=== PATIENT | female | born 1950 | race Caucasian/White ===

== ENCOUNTER → 2016-11-25 | Outpatient (CLI) | payer BC ==
[~2016-11-25] MED LIST: ALBUAER19 INH; ASPEC325 PO; ASTN; CITA20TA9 PO; FLEC50TA20 PO; FLUT0.0529 NAE; HMLIS SC; HYDR-5688 PO; INSUINJ4 SQ; LANS30CA12 PO; LOSA50TA6 PO; METO50TA7 PO; MOME100A INH; OXYSR10 PO; SNK PO; TRAM-10 PO; ZCR40 PO; [UNRECOGNIZED DRUG - OTHER] PO
== END | disposition home or self-care (01) ==
LOC: C.LABSPEC 17:43
PROVIDERS: ATTEND Obstetrics & Gynecology
DX: N76.2 Acute vulvitis (principal)

== ENCOUNTER → 2016-11-25 | Outpatient (CLI) | payer BC | END | disposition home or self-care (01) | LOC: C.PAPS 10:23 | PROVIDERS: ATTEND Obstetrics & Gynecology | DX: Z01.419 Encounter for gynecological examination (general) (routine) without abnormal findings (principal) ==

== ENCOUNTER → 2017-05-10 | Outpatient (CLI) | payer BC ==
--- NOTE | 2017-05-10 11:32 | DIAGNOSTIC IMAGING REPORT ---
THYROID ULTRASOUND HISTORY: NECK FULLNESS COMPARISON: None. FINDINGS: Right lobe: 3.9 x 2.2 x 1.4 cm. No nodules. Left lobe: 4.1 x 1.7 x 1.6 cm. No nodules. Isthmus: 4 mm in thickness. No nodules. IMPRESSION: Normal thyroid ultrasound. Electronically signed by: Tom Reynolds M.D. 05/10/2017 11:31 AM Dictated Date/Time: 05/10/2017 11:30 AM
== END | disposition home or self-care (01) ==
LOC: C.ULTR 10:38
PROVIDERS: ATTEND Internal Medicine Endocrinology, Diabetes & Metabolism
DX: R22.1 Localized swelling, mass and lump, neck (principal)

== ENCOUNTER 2017-05-26 01:37 | Emergency (ER) | payer BC ==
[~2017-05-26] VITALS: Ht 167.6 cm; Wt 114.7 kg
[~2017-05-26 01:37] MED LIST changes: -METO50TA7 PO; +METO50TA8 PO
[2017-05-26 01:43] VITALS: TEMP 36.2; Ht 167.6 cm; Wt 114.7 kg
--- NOTE | 2017-05-26 02:02 | EMERGENCY ROOM VISIT NOTE ---
History Report prepared by Melissa: Tera Dave Under the Supervision of: Dr. Carlton Stone M.D. First contact with patient: 01:51 Chief Complaint: HYPOGLYCEMIA Stated Complaint: HYPOGLYCEMIA Nursing Triage Summary: pt reports that she took her long acting insulin at 2330 adn then at 0015 she started to feel like she was panicking and sweaty. pt took glucose and toast with peanut butter. pt reports that her doctor has been altering her meds. pt was started on metformin 3 weeks ago. bsg at home was 56. per ems bsg was 107. History of Present Illness The patient is a 66 year old female who presents to the Emergency Room via EMS with complaints of an episode of hypoglycemia that occurred around an hour and a half ago. She says that she started to feel shaky, so she checked her sugars and they were down in the 60's. The patient states that she then took glucose and ate toast with peanut butter, and started to feel better. EMS noted that the patient's sugars were back to normal upon their arrival. The patient notes that she has had her medications adjusted recently, and is on Insulin, but had Metformin added 3 weeks ago. She adds that she has also been doing a lot more exertion recently, and did not eat as much as usual for dinner. The patient states that her heart was pounding during the episode, but denies any crushing chest pain. She also denies any back pain, flu-like illnesses, urinary symptoms , diarrhea, or leg swelling. The patient notes that her A1C's have recently been high over the past year. Source of History: patient Onset: An hour and a half ago Position: other (global - hypoglycemia) Symptom Intensity: in 60s Quality: other (feels better now) Timing: other (episode) Associated Symptoms: No chest pain (but heart was pounding), No back pain, No diarrhea, No urinary symptoms Note: Associated symptoms: Was shaky during episode. Denies flu-like illnesses or leg swelling. Review of Systems See HPI for pertinent positives & negatives. A total of 10 systems reviewed and were otherwise negative. Past Medical & Surgical Medical Problems: (1) Arthritis of left knee (2) Diabetes Family History No pertinent family history Social History Smoking Status: Never Smoker Marital Status: Housing Status: lives with family Occupation Status: employed Current/Historical Medications Scheduled Aspirin (Aspirin Ec), 325 MG PO BID Azelastine Hcl (Astelin Nasal [place]), 1 SPRAYS NA QPM Citalopram Hydrobromide (Celexa), 20 MG PO QAM Desloratadine (Clarinex), 5 MG PO QAM Flecainide (Tambocor), 50 MG PO BID Fluticasone Propionate (Nasal) (Flonase Allergy Relief), 2 SPRAYS NINO DAILY Insulin Glargine (Lantus), 58 UNITS SC QPM Insulin Human Lispro (Humalog Kwikpen), 1 DOSE SC TID Lansoprazole (Prevacid), 30 MG PO BID Losartan Potassium (Cozaar), 50 MG PO QAM Metformin Hcl Er (Glucophage Er), 500 MG PO BID Metoprolol Succ (Toprol Xl) (Toprol-Xl), 50 MG PO HS Simvastatin (Simvastatin), 40 MG PO QPM Scheduled PRN Albuterol Hfa (Ventolin Hfa), 2 PUFFS INH QID PRN for Shortness of Breath Mometasone Furoate-Formoterol (Dulera 100/5 Mcg), 2 PUFFS INH Q8H PRN for PRN Allergies Coded Allergies: Iodinated Diagnostic Agents (Verified Allergy, Unknown, HIVES, BREATHING ISSUES, 05/26/17) Physical Exam Vital Signs Date Time Temp Pulse Resp B/P (MAP) Pulse Ox O2 Delivery O2 Flow Rate FiO2 05/26/17 03:39 79 20 97 05/26/17 03:31 117/70 05/26/17 03:24 73 16 94 05/26/17 03:09 73 17 94 05/26/17 03:04 79 17 96 05/26/17 03:01 124/70 05/26/17 02:49 78 17 95 05/26/17 02:34 76 17 97 05/26/17 02:31 152/67 05/26/17 02:19 70 13 94 05/26/17 02:04 75 18 93 05/26/17 02:01 131/68 05/26/17 01:49 75 19 96 05/26/17 01:44 75 05/26/17 01:44 75 19 162/70 96 Room Air 05/26/17 01:43 36.2 74 20 162/70 97 Room Air Physical Exam GENERAL: Patient is well appearing and in no acute distress. HEENT: No acute trauma, normocephalic atraumatic, mucous membranes moist, no nasal congestion, no scleral icterus. NECK: No stridor, no adenopathy, no meningismus, trachea is midline. LUNGS: No dyspnea. Clear to auscultation and equal bilaterally. No wheeze, no rhonchi. HEART: Regular rate and rhythm. No murmurs, rubs, gallops appreciated. ABDOMEN: Soft, nontender, bowel sounds positive, no masses appreciated, no peritonitis. BACK: No midline tenderness, no CVA tenderness EXTREMITIES: Normal motion all extremities, no cyanosis, no edema. NEUROLOGIC: Alert and oriented, no acute motor or sensory deficits, no focal weakness, cranial nerves grossly intact. SKIN: No rash, no jaundice, no diaphoresis. Medical Decision & Procedures Laboratory Results Test 05/26/17 02:40 05/26/17 03:42 Bedside Hemoglobin 13.9 g/dl (12.0-16.0) Bedside Hematocrit 41 % (37-47) Bedside Sodium 135 mEq/L (135-144) Bedside Potassium 3.6 mEq/L (3.3-5.0) Bedside Chloride 98 mEq/L (101-112) Bedside Total CO2 27 mEq/l (24-31) Anion Gap 15.0 mmol/L (16-25) Bedside Blood Urea Nitrogen 19 mg/dl (7-18) Bedside Creatinine 0.7 mg/dl (0.6-1.3) Bedside Glucose (other) 165 mg/dl (70-99) Bedside Ionized Calcium (Katie) 1.16 mmol/l (1.12-1.32) Bedside Glucose 245 mg/dl (70-90) Laboratory results as reviewed by me. ED Course 0153: The patient was evaluated in room B2. A complete history and physical exam was performed. 0234: I reevaluated the patient and she is feeling well. Her is at bedside. 0330: Reevaluated the patient and she is feeling well. Discussed results and discharge instructions: she verbalized understanding and agreement. The patient is ready for discharge. Medical Decision 66 yr old female arrives following episode of resolved hypoglycemia. Consistent with fact she recently started metformin, was increased exertion throughout day and then had minimal dinner leading to episode. Cr OK as are other electrolytes. BSG not going low again. Patient stable, feels well and in no distress. No symptoms/findings of infectious etiology. Had no chest pain nor reason to suspect this was MS related. She will contact PCP for further evaluation. Discussed scaling back metformin while waiting on PCP input. Going home with . Medication Reconcilliation Current Medication List: was personally reviewed by me Impression Primary Impression: Hypoglycemia Scribe Attestation The scribe's documentation has been prepared under my direction and personally reviewed by me in its entirety. I confirm that the note above accurately reflects all work, treatment, procedures, and medical decision making performed by me. Departure Information Dispostion Home / Self-Care Referrals Glenna Harrison M.D. (PCP) Patient Instructions ED Diabetes Hypoglycemia Oral Agent, [facility] Additional Instructions Please discuss your low blood sugar episode with your primary provider.
[2017-05-26] MEDS ORDERED: METF500T5 PO (02:33)
[2017-05-26] MEDS ORDERED: ASPI325T39 PO (02:33)
[2017-05-26] MEDS ORDERED: INSDGI SC (02:33)
[2017-05-26] MEDS ORDERED: VNTHFA/IN INH (02:33)
[2017-05-26] MEDS ORDERED: CLR/5 PO (02:33)
[2017-05-26] MEDS ORDERED: FLUT0.15 NAE (02:33)
[2017-05-26 02:52] LABS: ISTAT CREATININE 0.7 mg/dl (0.6-1.3); ISTAT IONIZED CALCIUM 1.16 mmol/l (1.12-1.32); ISTAT POTASSIUM 3.6 mEq/L (3.3-5.0)
[2017-05-26 03:31] VITALS: BP 117/70
[2017-05-26 03:39] VITALS: PULSE 79; O2SAT 97
[2017-10-21] MEDS ORDERED: DULO60CA44 PO (08:41)
== END 2017-05-26 03:44 | disposition home or self-care (01) ==
LOC: EDBD 01:37 → C.EDB 01:38
DX: E11.649 Type 2 diabetes mellitus with hypoglycemia without coma (principal); M17.12 Unilateral primary osteoarthritis, left knee; Z79.4 Long term (current) use of insulin; Z79.82 Long term (current) use of aspirin; Z79.84 Long term (current) use of oral hypoglycemic drugs

== ENCOUNTER → 2017-06-01 | Outpatient (CLI) | payer BC ==
[~2017-06-01] MED LIST changes: -ALBUAER19 INH; -ASPEC325 PO; +ASPI325T39 PO; +CLR/5 PO; -FLUT0.0529 NAE; +FLUT0.15 NAE; -HYDR-5688 PO; +INSDGI SC; -INSUINJ4 SQ; +METF500T5 PO; +METO50TA7 PO; -METO50TA8 PO; -OXYSR10 PO; -SNK PO; -TRAM-10 PO; +VNTHFA/IN INH; -[UNRECOGNIZED DRUG - OTHER] PO
[2017-06-01 12:32] LABS: HEMOGLOBIN A1C 7.9 % (4.5-5.6)
[2017-06-01 13:11] LABS: CREATININE RANDOM URINE 70.3 mg/dl
[2017-06-01 16:39] LABS: ALBUMIN 3.6 gm/dl (3.4-5.0); ALT/SGPT 44 U/L (12-78); BLOOD UREA NITROGEN 11 mg/dl (7-18); CALCIUM 8.5 mg/dl (8.5-10.1); CARBON DIOXIDE 28 mmol/L (21-32); CHOLESTEROL 129 mg/dl (0-200); CREATININE 0.68 mg/dl (0.60-1.20); GLUCOSE 157 mg/dl (70-99); POTASSIUM 3.9 mmol/L (3.5-5.1); SODIUM 132 mmol/L (136-145)
[2017-06-01 16:48] LABS: ALKALINE PHOSPHATASE 95 U/L (45-117); AST/SGOT 24 U/L (15-37); LDL CHOLESTEROL CALCULATED 61 mg/dl; TOTAL PROTEIN 7.3 gm/dl (6.4-8.2)
== END | disposition home or self-care (01) ==
LOC: C.LAB1850 11:21
PROVIDERS: ATTEND Internal Medicine Endocrinology, Diabetes & Metabolism
DX: E11.9 Type 2 diabetes mellitus without complications (principal)

== ENCOUNTER → 2017-06-09 | Outpatient (CLI) | payer BC ==
--- NOTE | 2017-06-10 15:53 | MAMMOGRAPHY REPORT ---
BILATERAL DIGITAL SCREENING MAMMOGRAM TOMOSYNTHESIS WITH CAD: 06/09/2017 CLINICAL HISTORY: Routine screening. Patient has no complaints. TECHNIQUE: Breast tomosynthesis in addition to standard 2D mammography was performed. Current study was also evaluated with a Computer Aided Detection (CAD) system. COMPARISON: Comparison is made to exams dated: 06/08/2016 mammogram, 06/06/2015 mammogram, 04/09/2014 mammogram, 04/06/2013 mammogram, 04/05/2012 mammogram, and 04/03/2011 mammogram - [facility]. BREAST COMPOSITION: The tissue of both breasts is almost entirely fatty. FINDINGS: No suspicious mass, architectural distortion or cluster of microcalcifications is seen. IMPRESSION: ACR BI-RADS CATEGORY 1: NEGATIVE There is no mammographic evidence of malignancy. A 1 year screening mammogram is recommended. The pa tient will receive written notification of the results. Approximately 10% of breast cancers are not detected with mammography. A negative mammographic report should not delay biopsy if a clinically suggestive mass is present. Zenaida Lin M.D. ay/:06/09/2017 14:57:33 Ball Sorter: Caridad HILARIO(Cruz)(Lita), [facility] letter sent: Normal 1/2 BI-RADS Code: ACR BI-RADS Category 1: Negative
== END | disposition home or self-care (01) ==
LOC: C.MAMM 14:26
PROVIDERS: ATTEND Obstetrics & Gynecology
DX: Z12.31 Encounter for screening mammogram for malignant neoplasm of breast (principal)

== ENCOUNTER 2020-07-03 06:37 | Observation (INO) ==
--- NOTE | 2020-06-12 12:40 | Anesthesiology Consultation ---
Date of Service June 12, 2020 Assessment & Plan (1) Encounter for pre-operative examination: Chart Review Chart Review: Pending: Refer to Additional Notes / Consult section (pending possible surgeon ordered PCP and cardio clearance and preop Covid testing results ) and Patient NOT seen in Pre Admission Testing Awaiting possible surgeon ordered PCP and cardiac clearance - Check BSG AM DOS Pt initially scheduled for surgery 06/05/20- seen in PAT 05/20/20. Pt rescheduled due to Covid surge Per 05/20/20 PAT appt- patient goes by [facility]. 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 Patient was awake for the entire case and recalls sites sounds and smells of the OR. She reports the MEDICAL OFFICE RECEPTIONIST kept her talking and tried to distract her, also propofol given throughout the case but patient recalls being told they could not give her any more than they were already administering. BP noted to be on the lower end of normal throughout case, and pt notes this was prior to NICHOLAS diagnosis and treatment. Records do not indicate any complications/problems from anesthesia standpoint. Patient has since been treated for NICHOLAS with CPAP and reports 100% compliance. Interestingly, no issues with awareness with TKA few months prior to that one. Baseline BP appears higher throughout that case per review of records." Per nursing assessment 06/12/20, patient denies any recent travel. No known Covid positive contacts or Covid related symptoms. Scheduled for preop Covid testing 06/27/20 at [facility]= will await results. History Surgery Operation Date: 07/03/20 09:05 Proposed Procedures p Right Total Knee Revision with Depuy System - Ulises Jordan MD Height/Weight Height: 5 ft 5 in Weight: 99.79 kg Allergies Allergy/AdvReac Type Severity Reaction Status Date / Time Iodinated Contrast Media Allergy Intermediate HIVES, Verified 06/12/20 11:42 BREATHING ISSUES Medications Home Medications Medication Instructions Recorded Confirmed Last Taken albuterol sulfate 90 mcg/actuation 2 puffs INH Q6H PRN 02/23/19 06/12/20 Unknown aerosol inhaler cholecalciferol (vitamin D3) 125 5,000 units PO QPM 02/23/19 06/12/20 Unknown mcg (5,000 unit) capsule duloxetine 60 mg capsule,delayed 60 mg PO QAM 02/23/19 06/12/20 Unknown release losartan 50 mg tablet 50 mg PO QAM 02/23/19 06/12/20 Unknown simvastatin 40 mg tablet 40 mg PO QPM 02/23/19 06/12/20 Unknown Lactobacil.acidophilus-Bifido.animalis 1 cap PO QAM 03/27/19 06/12/20 Unknown 5 billion cell sprinkle capsule desloratadine 5 mg tablet 5 mg PO QAM tab 03/27/19 06/12/20 Unknown magnesium 250 mg tablet 200 mg PO QPM tab 03/27/19 06/12/20 Unknown FreeStyle Precision Caesar Strips #6 box NS 05/11/19 03/26/20 Unknown cyanocobalamin (vitamin B-12) 100 100 mcg PO QPM 10/17/19 06/12/20 Unknown mcg tablet flecainide 50 mg tablet 100 mg PO Q12H tab 10/17/19 06/12/20 Unknown pantoprazole 40 mg tablet,delayed 40 mg PO BID 10/17/19 06/12/20 Unknown release apixaban 5 mg tablet 5 mg PO BID 10/19/19 06/12/20 Unknown insulin NPH isoph U-100 human 100 See Rx Instructions SQ QPM #90 ml 10/19/19 06/12/20 Unknown unit/mL (3 mL) subcutaneous pen FreeStyle Karmen 14 Day Sensor #7 ea NS 01/31/20 03/26/20 Unknown Trulicity 1.5 mg/0.5 mL 1.5 mg SQ WEEKLY 90 Days #6 ml NS 03/26/20 06/12/20 Unknown subcutaneous pen injector metoprolol succinate 50 mg 100 mg PO QPM tab 03/26/20 06/12/20 Unknown tablet,extended release 24 hr CoQ-10 1 dose PO QPM 05/20/20 06/12/20 Unknown ascorbic acid (vitamin C) [Vitamin 1 g PO QPM 05/20/20 06/12/20 Unknown C] calcium carbonate [Calcium 600] 600 mg PO QPM 05/20/20 06/12/20 Unknown metformin 1,000 mg PO BID 05/20/20 06/12/20 Unknown potassium 99 mg PO QPM 05/20/20 06/12/20 Unknown vitamin B complex 1 cap PO QPM 05/20/20 06/12/20 Unknown Past Medical History Medical History (Updated 06/12/20 @ 12:49 by Criss Patterson PA-C) Anxiety Atrial fibrillation dx 07/2019 - on eliquis - follows with Dr. Croft Cardiac murmur I-II/ systolic murmur noted by Nick France PA-C at 05/20/20 PAT exam Mild MR - otherwise no significant valvular issues per 2019 ECHO DM type 2 (diabetes mellitus, type 2) IDDM GERD (gastroesophageal reflux disease) Grief Patient lost her in November of 2019. HTN (hypertension) Hyperlipidemia Osteoarthritis Sleep apnea CPAP. Pt reports 100% compliance. Past Family History Family History Mother Diabetes Brother Diabetes Brother Diabetes Uncle Diabetes Other Cancer Coronary heart disease Hypertension No family history of adverse response to anesthesia Past Surgical History Surgical History H/O hysterectomy with oophorectomy H/O varicose vein ligation History of carpal tunnel release History of colonoscopy History of D&C History of esophagogastroduodenoscopy (EGD) History of hernia repair History of knee replacement procedure of left knee History of knee replacement procedure of right knee S/P appendectomy S/P cholecystectomy S/P tonsillectomy and adenoidectomy Social History Smoking Status: Never smoker Hx Alcohol Use: No Hx Substance Use: No substance use type: does not use Testing Laboratory Results Laboratory Tests 05/20/20 05/20/20 05/20/20 16:27 16:27 16:27 WBC 9.00 Hgb 12.7 Hct 38.1 Plt Count 285 PT 10.6 INR 1.0 APTT 31.8 H Sodium 133 L Potassium 3.9 Chloride 99 Carbon Dioxide 29 BUN 11 Creatinine 0.62 Glucose 164 H Hemoglobin A1c 05/20/20 16:27 WBC Hgb Hct Plt Count PT INR APTT Sodium Potassium Chloride Carbon Dioxide BUN Creatinine Glucose Hemoglobin A1c 7.5 H 05/20/20= URINE CULTURE: More than three types of organisms present, all low counts mixed probably skin sienna. T&S: A positive, antibody negative Electrocardiogram Date: 05/20/20 Sinus rhythm at 68bpm with 1st degree AV block. Inferior infarct, age undetermined. Compared to EKG from 07/06/19, questionable change in QRS duration per cardio. (Possible inferior infarct noted on EKG since at least 2013) Chest X-Ray Date: 07/06/19 Findings: + NAD Echocardiogram Date: 01/25/19 EF: 70% Normal LV size and systolic function with no regional wall motion abnormalities. Mild concentric LVH. Diastolic function is indeterminate. Mild to moderate left atrial dilation. Normal RV size and function. Normal right atrium. Mild MR. Normal pulmonary artery pressures. Stress Test Date: 10/14/15 Type: exercise (Stress ECHO ) Resting EF: 60% Hypertensive response to exercise. Negative stress echocardiogram and EKG for ischemia 95% MPHR. Average exercise tolerance for age and gender, 106% of predicted, achieving 7 METS. Resting echocardiogram notes normal LV cavity size and systolic function with no regional wall motion abnormalities present.
--- NOTE | 2020-07-02 08:05 | History & Physical Report ---
Date of Service July 02, 2020 Assessment & Plan (1) Loosening of prosthesis of right total knee replacement: Postoperative prescriptions for Percocet will be provided at discharge from the hospital. She will likely be returning to her Eliquis. She has already been cleared by her PCP, Dr. Harrison, as well as her vocational instructor, Dr. Croft. She has seen PAT for lab work, EKG, and chest x-ray. The patient is aware of the COVID-19 risks associated with surgery. She is currently asymptoma tic of any COVID-19 symptoms. She will obtain a nasal swab for COVID-19 prior to surgery. She will stop her Eliquis preoperatively. She already has a walker. PDMP was checked and there are no concerns. Followup appointment for staple removal has been made for July 18. History of Present Illness Chief Complaint: Loose Right knee total knee arthroplasty Primary Care Provider: Glenna Harrison MD This 69-year-old white female presents today for her preoperative history and physical. She is scheduled to undergo a right knee total knee arthroplasty revision on 07/03/2020. The patient previously was scheduled for this procedure 06/05/2020. Surgery was postponed by the hospital due to rise in COVID cases. She is now ready to proceed. The patient previously had bilateral total knee arthroplasties done in 2015 by another practice in [facility]. She has had right knee pain since the procedure. She states it has not improved. Pain is primarily anterior. She has difficulty with ambulation as well as going up or down the steps. She feels a sense of giving way in the right knee. No fevers, chills, sweats, redness, or warmth. Previous Synovasure aspiration was negative for infection. She did have a bone scan, which suggested a loose tibial component. Her knee pain interferes with her ADLs and is worse with weightbearing. She denies any numbness or tingling. She elects to proceed with surgical intervention in the hopes of improving her function and pain. Allergies Allergy/AdvReac Type Severity Reaction Status Date / Time Iodinated Contrast Media Allergy Intermediate HIVES, Verified 06/12/20 11:42 BREATHING ISSUES Home Medications Medication Instructions Recorded Confirmed Type albuterol sulfate 90 mcg/actuation 2 puffs INH Q6H PRN 02/23/19 06/12/20 History aerosol inhaler cholecalciferol (vitamin D3) 125 5,000 units PO QPM 02/23/19 06/12/20 History mcg (5,000 unit) capsule duloxetine 60 mg capsule,delayed 60 mg PO QAM 02/23/19 06/12/20 History release losartan 50 mg tablet 50 mg PO QAM 02/23/19 06/12/20 History simvastatin 40 mg tablet 40 mg PO QPM 02/23/19 06/12/20 History Lactobacil.acidophilus-Bifido.animalis 1 cap PO QAM 03/27/19 06/12/20 History 5 billion cell sprinkle capsule desloratadine 5 mg tablet 5 mg PO QAM tab 03/27/19 06/12/20 History magnesium 250 mg tablet 200 mg PO QPM tab 03/27/19 06/12/20 History FreeStyle Precision Caesar Strips #6 box NS 05/11/19 03/26/20 Rx cyanocobalamin (vitamin B-12) 100 100 mcg PO QPM 10/17/19 06/12/20 History mcg tablet flecainide 50 mg tablet 100 mg PO Q12H tab 10/17/19 06/12/20 History pantoprazole 40 mg tablet,delayed 40 mg PO BID 10/17/19 06/12/20 History release apixaban 5 mg tablet 5 mg PO BID 10/19/19 06/12/20 History insulin NPH isoph U-100 human 100 See Rx Instructions SQ QPM #90 ml 10/19/19 06/12/20 Rx unit/mL (3 mL) subcutaneous pen FreeStyle Karmen 14 Day Sensor #7 ea NS 01/31/20 03/26/20 Rx Trulicity 1.5 mg/0.5 mL 1.5 mg SQ WEEKLY 90 Days #6 ml NS 03/26/20 06/12/20 Rx subcutaneous pen injector metoprolol succinate 50 mg 100 mg PO QPM tab 03/26/20 06/12/20 History tablet,extended release 24 hr CoQ-10 1 dose PO QPM 05/20/20 06/12/20 History ascorbic acid (vitamin C) [Vitamin 1 g PO QPM 05/20/20 06/12/20 History C] calcium carbonate [Calcium 600] 600 mg PO QPM 05/20/20 06/12/20 History metformin 1,000 mg PO BID 05/20/20 06/12/20 History potassium 99 mg PO QPM 05/20/20 06/12/20 History vitamin B complex 1 cap PO QPM 05/20/20 06/12/20 History Past Med/Surg History Medical History Anxiety Atrial fibrillation dx 07/2019 - on eliquis - follows with Dr. Croft Cardiac murmur I-II/ systolic murmur noted by Nick France PA-C at 05/20/20 PAT exam Mild MR - otherwise no significant valvular issues per 2019 ECHO DM type 2 (diabetes mellitus, type 2) IDDM GERD (gastroesophageal reflux disease) Grief Patient lost her in November of 2019. HTN (hypertension) Hyperlipidemia Osteoarthritis Sleep apnea CPAP. Pt reports 100% compliance. Surgical History H/O hysterectomy with oophorectomy H/O varicose vein ligation History of carpal tunnel release History of colonoscopy History of D&C History of esophagogastroduodenoscopy (EGD) History of hernia repair History of knee replacement procedure of left knee History of knee replacement procedure of right knee S/P appendectomy S/P cholecystectomy S/P tonsillectomy and adenoidectomy Family History Mother Diabetes Brother Diabetes Brother Diabetes Uncle Diabetes Other Cancer Coronary heart disease Hypertension No family history of adverse response to anesthesia Social History (Updated 07/02/20 @ 08:02 by Dakotah Elise PA-C) Smoking Status: Never smoker Second Hand Exposure: No; Hx Alcohol Use: No Hx Substance Use: No Preferred Language: Lao Communication Ability: Effective Auger Supervisor Required: No Beliefs That Will Affect Care: None marital status: / Current Living Situation: Alone current occupational status: retired Feels Safe at Home: Yes Assistive Devices: Contacts and Glasses Review of Systems Review of Systems: All systems reviewed & are unremarkable except as noted in HPI & below A total of 10 systems were reviewed. Physical Exam Physical Exam: Vitals: Height 165.5 cm, weight 101 kilograms, BMI 36.9, temperature 36.1, BP 170/90, pulse 73, O2 sat 95% on room air, respirations 14. General: Well-developed, well-nourished middle-aged white female in no acute distress. Sitting in a chair. Alert and oriented. Moderately obese. Skin: Warm and dry with good turgor. No rashes or lesions. No ecchymosis or erythema. No warmth at the knee. Post-surgical scar is present. HEENT: Normocephalic, atraumatic. Eyes: PERRLA, EOMI. Nares and oropharynx exams deferred due to COVID precautions. She does have a history of dental caps. Lungs: Clear to auscultation bilaterally; no crackles, rhonchi or wheezing; good air movement. Heart: RRR, 2/6 systolic ejection murmur noted. No gallops or rubs. Abdomen: Obese. Bowel sounds present x4; soft, nontender. No organomegaly. No masses. Musculoskeletal: Right knee has no significant intraarticular effusion. Varus alignment. She lacks a few degrees of terminal extension. Flexion to around 100 degrees. Strength is 5/5 with fair quad tone. She has pain over the quadricep, quad tendon, and patellar tendon. No defects. She appears to have some laxity with varus and valgus stress compared to the other side. Ambulates with an antalgic gait. Neurologic: Gross sensation is intact across both lower extremities by soft touch. Peripheral pulses are 2+. Results & Data Results & Data ([facility]) Diagnostic Findings Radiographic imaging previously obtained shows varus alignment of the right knee with loosening of the tibial component. Bone scan previously obtained 04/08/2020 shows loosening of the tibial component. Moderate to marked radiotracer uptake adjacent to the tibial component with mild uptake at the femoral component.
[~2020-07-03 06:37] MED LIST changes: -ASPI325T39 PO; -ASTN; +BUPIVACAINE 0.25% 30 ML VIAL ONE; +BUPIVACAINE 0.5 % 5 MG/1 ML PF 10ML VIAL ONE; -CITA20TA9 PO; -CLR/5 PO; -FLEC50TA20 PO; -FLUT0.15 NAE; -HMLIS SC; -INSDGI SC; -LANS30CA12 PO; -LOSA50TA6 PO; +LR 500ML BOLUS, THEN 15ML/HR IV SCH; +LR 60ML/HR IV SCH; -METF500T5 PO; -METO50TA7 PO; -MOME100A INH; +ROPIVACAINE 0.5% HCL/PF 150 MG, BUPIVACAINE 0.75% MPF 20 ML, EPINEPHrine 0.15 MG, Ketor... INFIL SCH; +TRANEXAMIC ACID 1,000 MG **IV Intra-op IV SCH; +TRANEXAMIC ACID 1,000 MG x 1 **For Topical Use TOP SCH; +VANCOMYCIN HCL 1,500 MG in SODIUM CHLORIDE 0.9% 500 ML IV SCH; -VNTHFA/IN INH; -ZCR40 PO; +ceFAZolin 2000MG 2,000 MG/15 ML SYR IV SCH
--- NOTE | 2020-07-03 06:53 | History & Physical Bridge Note ---
Date of Service July 03, 2020 History & Physical Bridge Note I have examined the patient, reviewed the History & Physical and in the interval since the performance of the History & Physical I have noted the following changes of clinical significance:consent obtained /site verified/covid screen negative. no changes noted
[2020-07-03] MEDS ORDERED: MIDAZOLAM HCL 1 MG/ML 2ML VIAL ONE ×3 (07:16→10:59)
[2020-07-03] MEDS ORDERED: fentaNYL citrate 100 MCG/2 ML VIAL ONE (07:17)
[2020-07-03] MEDS ORDERED: KETAMINE 50 MG/5 ML SYRINGE ONE (07:26)
[2020-07-03] MEDS ORDERED: ORTHO JOINT ANESTHETIC ONE (08:56)
[2020-07-03] MEDS ORDERED: INSULIN ASPART PER UNIT SC STA (09:05)
[2020-07-03] MEDS ORDERED: ATROPINE SULFATE 0.1 MG/ML 10ML SYR IV PRN (09:07)
[2020-07-03] MEDS ORDERED: ePHEDrine sulfate 50 MG/ML AMP IV PRN (09:07)
[2020-07-03] MEDS ORDERED: fentaNYL citrate 100 MCG/2 ML VIAL IV PRN (09:07)
[2020-07-03] MEDS ORDERED: ONDANSETRON INJ 2 MG/ML 2 ML VIAL IV PRN ×2 (09:07→13:47)
[2020-07-03] MEDS ORDERED: NovoLIN-R INSULIN PER UNIT CHARGE ONE (09:07)
[2020-07-03] MEDS ORDERED: PROPOFOL IV EMULSION 10 MG/ML 20 ML VIAL IV ONE ×3 (09:46→10:18)
[2020-07-03] MEDS ORDERED: GLYCOPYRROLATE 0.2 MG/ML VIAL ONE (09:46)
[2020-07-03] MEDS ORDERED: ONDANSETRON INJ 2 MG/ML 2 ML VIAL ONE (09:46)
[2020-07-03] MEDS ORDERED: LIDOCAINE HCL 2% 2 ML VIAL/AMP(20MG/ML) INFIL ONE (09:46)
--- NOTE | 2020-07-03 12:03 | Post Operative Brief Note ---
Immediate Post Op Note v1 Date of Surgery July 03, 2020 Pre & Post Diagnosis Operation Date: 07/03/20 08:50 Pre-Op Diagnosis: Loose Right Total Knee Arthroplasty Post-Op Diagnosis: Loose Right Total Knee Arthroplasty I identified the patient and participated in the time-out.: Yes Procedure Operation Date: 07/03/20 08:50 Actual Procedures p Right Total Knee Revision with DePuy System(Right) - Ulises Jordan MD Surgeon Ulises Jordan MD Prep Manager david/rajinder Estimated Blood Loss 75 Findings Consistent with Post-Op Diagnosis
--- NOTE | 2020-07-03 12:14 | Operative Report ---
Post Operative Report Pre & Post Diagnosis Operation Date: 07/03/20 08:50 Pre-Op Diagnosis: Loose Right Total Knee Arthroplasty Post-Op Diagnosis: Loose Right Total Knee Arthroplasty I identified the patient and participated in the time-out.: Yes Procedure Operation Date: 07/03/20 08:50 Actual Procedures p Right Total Knee Revision with DePuy System(Right) - Ulises Jordan MD Surgeon ОЛЕГ Jordan MD Shift Foreman david/rajinder CADENA Estimated Blood Loss 75 Findings Consistent with Post-Op Diagnosis Specimens see operative report Drains none Complications none Disposition Accompanied Patient To Recovery: Yes Disposition: Recovery Room Indications This 69-year-old white female presented to the office with complaints of persisting right knee pain after previous total knee arthroplasty 5 years ago. She had tried conservative care measures without improvement. She elected to proceed with surgical intervention after being educated about potential risks and outcomes. Preoperative imaging was obtained. Description of Procedure Patient was administered a spinal anesthetic and then taken to the operating room where she was given sedation. She was prepped and draped in the usual sterile fashion. Please see Dr. Jordan's operative report for specifics of the procedure. I was present for the entire case from initial patient positioning through final wound closure. Assistance was provided in tissue retraction, hemostasis, hardware removal, trial implant placement, final implant placement, and final wound closure. Patient was taken to the recovery room in satisfactory condition. I attest to the content of the Intraoperative Record and any orders documented therein. Any exceptions are noted below.
[2020-07-03] MEDS ORDERED: PHARMACY GLYCEMIC MGMT CONSULT PRN (12:28)
--- NOTE | 2020-07-03 12:38 | XRay Report ---
XR knee RT 1 or 2V routine CLINICAL HISTORY: Knee arthroplasty revision COMPARISON: 04/01/2020 DISCUSSION: There are postsurgical changes of a longstem total right knee arthroplasty revision. Ther e is evidence of patellar resurfacing. There are no acute fractures. There is no dislocation. There a re overlying skin primo. There is gas within the soft tissues consistent with recent surgery IMPRESSION: Postsurgical changes of a total right knee arthroplasty revision. ACT 112: Negative or not required by law. Electronically signed by: Kd Burrell M.D. 07/03/2020 12:37 PM
--- NOTE | 2020-07-03 12:38 | Operative Report (OR) ---
DATE OF OPERATION: 07/03/2020 SURGEON: Ulises Jordan MD. HELP DESK ANALYST: Yesenia. SECOND HELP DESK ANALYST: Dakotah Elise PA-C. PREOPERATIVE DIAGNOSIS: Loose aseptic right total knee replacement. POSTOPERATIVE DIAGNOSIS: Loose aseptic right total knee replacement. OPERATION PERFORMED: Revision right total knee replacement with Sigma TC3 rotating platform. This was cemented. SUMMARY OF IMPLANTS: Size 2.5 right TC3 +2 bolt, 5-degree adaptor, 2.5, 4 mm distal augments x2, 17 x16 stem on the femur, on the tibia was 2.5 mobile bearing tray revision 75 x 14 stem, 29 sleeve, insert was 2.5 x 15 TC3 rotating platform insert. ESTIMATED BLOOD LOSS: 75 mL. CRYSTALLOID: Per anesthesia. PATHOLOGY: Pending on soft tissue resection. PERIOPERATIVE SITUATION: Medically cleared female who has been worked up with a bone scan, alpha defensin and cultures, all of which were negative, which revealed loosening of her tibia. She states the knee never felt right from the beginning. At this point, wants to have it revised. No guarantees given including the potential for infection, patellar tendon or extensor mechanism disruption, etc. She also knows DVT, PE and so forth. DESCRIPTION OF PROCEDURE: The patient was appropriately identified, site verified, consent verified. Antibiotics confirmed as being given. The right lower extremity was prepped and draped in usual routine fashion. Tourniquet inflated to 300 mmHg for a total of 113 minutes. The old incision was utilized and extended slightly proximally about a centimeter. Arthrotomy was performed. The patella was encased in scar, could not be everted. It required tedious dissection to get that out. Once that was all done, we were able to jose the patella. Flexed the knee, synovectomy completed. The femur was then removed with a power saw and osteotomes with no difficulty. There was no major bone loss on the femur. Tibia was loose. It was knocked off and then the cement required a fair amount of removal as there was a large wad distally. This all took careful tedious dissection to get that out. This was then all irrigated. Trial implants were then placed after appropriate reaming on the tibia and on the femur, and they are noted as above. Once the permanents were then prepared, the area was irrigated one final time with Betadine and Pulsavac and then the permanent cemented into position. With the metaphyseal sleeve, there was minimal cement on the tibia. With no sleeve on the femur, there was more cement. After 12 minutes, the tourniquet was deflated. Minor bleeding points were controlled with electrocautery. After 14 minutes, knee flexed. Minor cement removal occurred. The trial spacer was removed. The wound was irrigated with Betadine and Pulsavac and then the permanent liner seated, knee reduced and closed at 30-40 degrees of flexion with #2 Vicryl, 2-0 Vicryl and stainless steel clips. Appropriate dressing was applied including a Grant Florez cotton dressing. Need to protect her wound. Antibiotics will continue for hospital stay overnight. DVT prophylaxis per her protocol. She is on chronic anticoagulation. Her daughter will be contacted. I attest to the content of the Intraoperative Record and any orders documented therein. Any exception s are noted below.
--- NOTE | 2020-07-03 12:56 | Progress Notes ---
DATE: 07/03/2020 SUBJECTIVE: Postop check status post revision right total knee replacement for aseptic loosening. The patient is recovering well. Denies chest pain, shortness of breath, fever, chills, nausea, vomiting or headache. OBJECTIVE: Vital signs are stable. She is afebrile. Postop x-rays look excellent. ASSESSMENT: Doing well status post revision right total knee replacement. At this point in time, no major issues. Continue with postoperative care pathway. She will start her routine deep venous thrombosis and pulmonary embolism prophylaxis tomorrow. Again, postoperative x-rays look excellent.
--- NOTE | 2020-07-03 13:14 | Anesthesiology Progress Note ---
Date of Service July 03, 2020 Anesthesia Post Procedure Vital Signs Vital Signs: Temp Pulse Pulse Resp BP Pulse Ox 07/03/20 13:00 68 16 128/60 94 07/03/20 12:50 71 14 125/93 93 07/03/20 12:40 68 14 128/70 93 07/03/20 12:30 70 12 127/69 93 07/03/20 12:20 69 16 135/75 99 07/03/20 12:11 36.2 C L 70 17 146/81 H 99 07/03/20 07:40 36.9 C 77 18 168/76 H 96 Pain Intensity Right Knee: Pain Intensity: 0 Transfer of Care Handoff Completed per policy Notes Mental Status: alert / awake / arousable and participated in evaluation Nausea / Vomiting: adequately controlled Pain: adequately controlled Airway Patency, RR, SpO2: stable & adequate BP & HR: stable & adequate Hydration State: stable & adequate Neuraxial Anesthesia: was administered and sensory block is resolving Anesthetic Complications: no major complications apparent and Pt Satisfied with anesthetic care
--- NOTE | 2020-07-03 13:27 | Discharge Summary (DS) ---
DATE OF POTENTIAL DISCHARGE: 07/04/2020. CHIEF COMPLAINT: Right knee pain. HISTORY OF PRESENT ILLNESS: Longstanding problem with painful right total knee prosthesis here for revision. An appropriate workup including alpha defensin, CRP and a sed rate, all of which were normal. Culture was also normal. At this point, underwent a revision today. Used PC3 RP DePuy system/J and J system. Postop x-rays look excellent. HOME MEDICATIONS: Please see medication reconciliation list. ALLERGIES: ALLERGIC TO IODINATED CONTRAST MEDIA. ADMISSION MEDICATIONS: Include albuterol, vitamins, duloxetine, losartan, simvastatin, desloratadine, magnesium, cyanocobalamin, vitamin B12, flecainide, propranolol, Apixaban 5 mg b.i.d., insulin, FreeStyle Karmen, Trulicity, beta alonso, metoprolol succinate, CoQ10, ascorbic acid, calcium carbonate, metformin, potassium, and vitamin B complex. PAST MEDICAL HISTORY: Remarkable for anxiety, atrial fibrillation, cardiac murmur, type 2 diabetes mellitus, gastroesophageal reflux disease, Grief syndrome, hypertension, hyperlipidemia, osteoarthritis, sleep apnea. PAST SURGICAL HISTORY: Includes hysterectomy, oophorectomy, varicose veins, carpal tunnel release, colonoscopy, D and C, EGD, hernia repair, knee replacements, appendectomy, cholecystectomy, tonsillectomy and adenoidectomy. FAMILY HISTORY: Remarkable for diabetes in mother, brother, uncle. Cancer, coronary artery disease, hypertension in other family members. SOCIAL HISTORY: She does not smoke. Social alcohol only. REVIEW OF SYSTEMS: Noncontributory. ASSESSMENT: Doing well status post revision right total knee replacement. X-rays look good. Continue with postoperative care pathway. Discharge tomorrow.
[2020-07-03] MEDS ORDERED: ALUMINUM/MAGNESIUM SUSP 30 ML UDC PO PRN (13:47)
[2020-07-03] MEDS ORDERED: diphenhydrAMINE 50 MG/ML VIAL IV PRN (13:47)
[2020-07-03] MEDS ORDERED: HYDROmorphone INJ 0.5 MG/0.5 ML SYR IV PRN (13:47)
[2020-07-03] MEDS ORDERED: NALOXONE HCL 0.4 MG/1 ML VIAL/CARP IV PRN (13:47)
[2020-07-03] MEDS ORDERED: bisacodyL 10 MG SUPP PR PRN (13:47)
[2020-07-03] MEDS ORDERED: MAGNESIUM HYDROXIDE SUSP 30 ML UDC PO PRN (13:47)
[2020-07-03] MEDS ORDERED: METOCLOPRAMIDE HCL INJ 5 MG/ML 2 ML VIAL IV PRN (13:47)
[2020-07-03] MEDS: KETOROLAC TROMETHAMINE 15 MG/ML VIAL IV SCH ×2 (14:15→21:37)
[2020-07-03] MEDS ORDERED: SODIUM CHLORIDE 0.9% 1000ML 1,000 ML IV SCH (14:15)
[2020-07-03] MEDS ORDERED: ALBUTEROL HFA 8 GM INHALER INH PRN (14:15)
--- NOTE | 2020-07-03 14:59 | Pharmacy Report ---
Pharmacy Glycemic Short Note 2 - Date of Service July 03, 2020 - Glycemic Short BSG Results (Last 24 hours): 07/03/20 07/03/20 07:00 12:16 POC Glucose 208 H 126 H OUTPATIENT ANTIDIABETIC REGIMEN: * NPH 30 units SQ qPM * Metformin 1gm PO BID * Trulicity SQ weekly * HbA1c: 7.5% (05/20/2020) ASSESSMENT: * Ms Marks is a 69yo diabetic female POD 0 s/p R TKA. * Patient received vanc/ancef meme-operatively. It does not appear as though patient received any steroids. * Patient was given 2 units of SQ insulin in the OR for BSG 208. * Post-op BSG was 126mg/dL. * Pt is ordered a diabetic diet (consider switching from Type 1 diet to Type 2 diet if carb restriction is required). PLAN FOR INPATIENT GLYCEMIC CONTROL: * Hold outpatient oral diabetes medications * Basal insulin * NPH 20 units SQ qPM * dose reduced somewhat d/t carb coverage provided by Novolog. May require adjustment as admission progresses. * Bolus insulin * NovoLog per scale ACHS or Q6hrs while NPO * Goal Range: Low 110 mg/dL - High 140 mg/dL * Correction Factor: 25 mg/dL/unit * Nutritional / Prandial insulin per carb ratio of 1 unit per 9 grams CHO consumed PLAN FOR DISCHARGE: * A1c: 7.5% -- this indicates acceptable glycemic control as an outpt * Expect that pt may resume home regimen on discharge, as long as she does not report having episodes of hypoglycemia.
[2020-07-03] MEDS: oxyCODONE HCL IR 5 MG TAB (IMMEDIATE RELEASE) PO PRN ×3 (15:15→23:29)
[2020-07-03] MEDS: ACETAMINOPHEN 500 MG TAB PO SCH ×2 (15:16→21:35)
[2020-07-03] MEDS: ASCORBIC ACID 500 MG TAB PO SCH (16:22)
[2020-07-03] MEDS: FERROUS GLUCONATE 324 MG TAB PO SCH (16:22)
[2020-07-03] MEDS ORDERED: INSULIN HUMAN NPH SC SCH (16:30)
[2020-07-03] MEDS: INSULIN ASPART 100 UNITS/ML 3 ML PEN SC SCH ×2 (17:42→21:44)
[2020-07-03] MEDS: ceFAZolin 2000MG 2,000 MG/15 ML SYR IV SCH (17:45)
[2020-07-03] MEDS: FLECAINIDE ACETATE 100 MG TABLET PO SCH (17:45)
[2020-07-03] MEDS ORDERED: VANCOMYCIN HCL 1,500 MG in SODIUM CHLORIDE 0.9% 500 ML IV SCH (19:30)
[2020-07-03] MEDS ORDERED: SENNA 8.6 MG TAB PO SCH (21:00)
[2020-07-03] MEDS ORDERED: MAGNESIUM OXIDE 400 MG TAB PO SCH (21:00)
[2020-07-03] MEDS ORDERED: NON-FORMULARY MEDICATION (Potassium 99 mg Tablet) PO SCH (21:00)
[2020-07-03] MEDS ORDERED: CALCIUM CARBONATE 1250MG TAB PO SCH (21:00)
[2020-07-03] MEDS ORDERED: METOPROLOL SUCC 50MG EXT REL TAB PO SCH (21:00)
[2020-07-03] MEDS ORDERED: SIMVASTATIN 40 MG TAB PO SCH (21:00)
[2020-07-03] MEDS: DOCUSATE SODIUM 100 MG CAP PO SCH (21:32)
[2020-07-03] MEDS: PANTOprazole 40 MG TAB PO SCH (21:35)
[2020-07-04] MEDS: ceFAZolin 2000MG 2,000 MG/15 ML SYR IV SCH (01:53)
[2020-07-04] MEDS: KETOROLAC TROMETHAMINE 15 MG/ML VIAL IV SCH ×2 (01:55→08:21)
[2020-07-04] MEDS: oxyCODONE HCL IR 5 MG TAB (IMMEDIATE RELEASE) PO PRN ×2 (04:17→08:25)
[2020-07-04] MEDS: ACETAMINOPHEN 500 MG TAB PO SCH (05:34)
[2020-07-04] MEDS: FLECAINIDE ACETATE 100 MG TABLET PO SCH (05:34)
[2020-07-04 05:51] LABS: Hematocrit (blood only) 30.3 % (37-47); Hemoglobin 10.3 g/dL (12.0-16.0); Mean Corpuscular Hemoglobin 30.6 pg (25-34); Mean Corpuscular Volume 89.9 fL (80-100); Mean Platelet Volume 8.4 fL (7.4-10.4); Platelet Count 247 K/uL (130-400); RDW Coefficient of Variation 12.9 % (11.5-14.5); RDW Standard Deviation 42.2 fL (36.4-46.3); Red Blood Count 3.37 M/uL (4.2-5.4); White Blood Count 8.44 K/uL (4.8-10.8)
[2020-07-04 06:24] LABS: BUN Creatinine Ratio 18.7 (10-20); Calcium 7.8 mg/dl (8.5-10.1); Est GFR (African American) 108.1; Est GFR (Non-African American) 93.3; Potassium 4.2 mmol/L (3.5-5.1)
[2020-07-04] MEDS: INSULIN ASPART 100 UNITS/ML 3 ML PEN SC SCH (08:18)
--- NOTE | 2020-07-04 08:18 | Progress Notes ---
DATE: 07/04/2020 SUBJECTIVE: Postop day #1 status post revision right total knee replacement. The patient is doing well, has pain in the back side of her knee. Otherwise, has no major discomfort. Neurologically, she denies any numbness or tingling. She denies chest pain, shortness of breath, fever, chills, nausea, vomiting or headache. OBJECTIVE: Vital signs are stable. She is afebrile. Pulse is in the 60s. Blood work today reveals hematocrit to be 30. Glucoses are in reasonable range at 180 range. NEUROLOGIC: Reveals intact femoral sciatic nerve dressing has some minor soilage this will be changed later today. ASSESSMENT: Doing well status post revision right total knee replacement. Plan is to discharge to home today with home services. Restart her Eliquis today. We will need pressure dressing for 4-5 days with a Grant Florez cotton. Follow up in roughly 5 days .. Start therapy in roughly 10 days. MTDD
[2020-07-04] MEDS: PANTOprazole 40 MG TAB PO SCH (08:19)
[2020-07-04] MEDS: DOCUSATE SODIUM 100 MG CAP PO SCH (08:20)
[2020-07-04] MEDS: ASCORBIC ACID 500 MG TAB PO SCH (08:20)
[2020-07-04] MEDS: FERROUS GLUCONATE 324 MG TAB PO SCH (08:20)
[2020-07-04] MEDS ORDERED: metFORMIN HCL 500 MG TAB PO SCH (08:30)
[2020-07-04] MEDS ORDERED: DULoxetine HCL 60 MG CAP PO SCH (09:00)
[2020-07-04] MEDS ORDERED: MULTIVITAMIN TAB PO SCH (09:00)
[2020-07-04] MEDS ORDERED: LOSARTAN POTASSIUM 50 MG TAB PO SCH (09:00)
[2020-07-04] MEDS ORDERED: APIXABAN 5 MG TABLET PO SCH (09:00)
--- NOTE | 2020-07-04 10:58 | Orthopedic Progress Note ---
Date of Service July 04, 2020 Assessment & Plan (1) Status post revision of total replacement of right knee: Postsurgical dressing was changed today by me. New Florez dressing was applied. PT/OT today while in the hospital. Anticipate discharge to home later today. She will have her family assist her. Follow-up in the office on Wednesday at 1 PM for another dressing change with me. Continue with ice and elevation frequently to reduce pain and swelling. Prescription for Percocet was sent to her pharmacy. Eliquis was started this morning and she will continue as previously prescribed preop. Resume all of her normal diabetic medications. Call the office with any other concerns. Weightbearing as tolerated using her walker. Written discharge instructions were provided. Admission and Anticipated Discharge Date Admission Date: July 03, 2020 Subjective Patient was seen in her room this morning. She states she did not sleep well with numerous disruptions. She feels tired this morning. Denies any chest pain, shortness of breath, nausea, vomiting, or abdominal pain. There is little knee pain at this point. No other complaints. Review of Systems Review of Systems: Unchanged from previous exam Physical Exam Physical Exam: General: Well-developed, well-nourished, elderly white female, in no acute distress. Laying on the bed. Alert and oriented. Skin: Right knee has an extensive Florez dressing in place. There is bloody soiling through the Abelino wraps. Upon removal, she has expected postoperative ecchymosis and edema at the knee. [place] are intact. Wound edges are well approximated. No warmth. No active bleeding. She did have considerable blood on her surgical dressings. Musculoskeletal: Patient has intact motor function of her toes, ankle, and knee. She is able to perform a straight leg raise. Neurologic: Gross sensation is intact across the right leg by soft touch. Peripheral pulses are 2+. Results & Data ([facility]) Vital Signs (Past 12 Hours) Vital Signs Temp Pulse Pulse Pulse Resp BP BP 07/04/20 10:01 36.6 C 71 66 61 16 148/91 H 124/75 07/04/20 07:18 36.6 C 61 16 124/75 07/04/20 05:31 66 114/74 07/04/20 04:26 36.7 C 67 18 149/82 H 07/03/20 23:16 36.6 C 70 15 128/79 Pulse Ox 07/04/20 10:01 99 07/04/20 07:18 99 07/04/20 05:31 07/04/20 04:26 96 07/03/20 23:16 94 Laboratory Results H&H obtained this morning are 10.3 and 30.3. PRP is relatively unremarkable. Blood sugars have remained adequate, with a max overnight of 187. She was 208 yesterday preop.
--- NOTE | 2020-07-05 08:56 | Operative Report ---
Post Operative Report Pre & Post Diagnosis Operation Date: 07/03/20 08:50 Pre-Op Diagnosis: Loose Right Total Knee Arthroplasty Post-Op Diagnosis: Loose Right Total Knee Arthroplasty I identified the patient and participated in the time-out.: Yes Procedure Operation Date: 07/03/20 08:50 Actual Procedures p Right Total Knee Revision with DePuy System(Right) - Ulises Jordan MD Surgeon Ulises Jordan MD Shop Director david/rajinder CADENA Estimated Blood Loss 75 Findings Consistent with Post-Op Diagnosis Specimens none Anesthesia Type General Complications none Disposition Accompanied Patient To Recovery: Yes Disposition: Recovery Room Description of Procedure As per 's note,I assisted in prepping and draping, instruments handling, certain parts of the procedure and wound closure I attest to the content of the Intraoperative Record and any orders documented therein. Any exceptions are noted below.
== END 2020-07-04 11:58 | disposition home or self-care (01) ==
LOC: 3E 06:37 → ASU 06:37